=== PATIENT | female | born 1985 | race Caucasian/White ===

== ENCOUNTER 2018-05-13 15:16 | Emergency (ER) | payer MEDICARE, OTHER ==
[~2018-05-13] VITALS: Ht 175.3 cm; Wt 60.3 kg
[~2018-05-13 15:16] MED LIST: ALPR.25 PO; AMOX1XR PO; AMOX500 PO; ANTOXYBENA OT; AVONEX; Ativan0.5 MG PO; BCP'S; COPAXONE40 MG/1 ML SQ; CYCL10 PO; ESOM20 PO; FAMO40 PO; FLUT.05NI; GUAPSEER PO; HYDACE5 PO; HYDMOR4 PO; INTE30I; METPRE16 PO; METPRE4DP PO; NAPR550 PO; NEURONTIN; Norco 5-325 Ta1 EACH PO; OXYACE5T PO; OXYC5 PO; OXYM.05NI; Percocet 5-3251 EACH PO; TRAM50; Ultram50 MG PO; [UNRECOGNIZED DRUG - OTHER] PO; [UNRECOGNIZED DRUG - OTHER] PO; [UNRECOGNIZED DRUG - REMARK]
[2018-05-13] MEDS ORDERED: OCREVUS300 MG/10 (16:40)
[2018-05-13] MEDS ORDERED: Zanaflex2 M1 PO (17:31)
[2018-05-13] MEDS ORDERED: Percocet 5-3251 EACH PO (17:32)
[2018-05-13] MEDS ORDERED: Prednisone20 MG PO (17:33)
== END 2018-05-13 18:48 | disposition home or self-care (01) ==
LOC: ER 15:16
DX: G35 Multiple sclerosis (principal); Z79.899 Other long term (current) drug therapy; F17.200 Nicotine dependence, unspecified, uncomplicated
CPT/HCPCS: 96372; 99283; J1170

== ENCOUNTER 2018-09-02 00:33 | Emergency (ER) | payer MEDICARE, OTHER ==
[~2018-09-02] VITALS: Ht 175.3 cm; Wt 59.0 kg
[~2018-09-02 00:33] MED LIST changes: +Prednisone20 MG PO; +Zanaflex2 M1 PO
[2018-09-02] MEDS ORDERED: Prednisone50 MG PO (00:54)
[2018-09-02] MEDS ORDERED: Roxicodone5 MG PO (00:54)
[2018-09-02] MEDS ORDERED: Zanaflex4 MG PO (00:55)
== END 2018-09-02 02:06 | disposition home or self-care (01) ==
LOC: ER 00:33
DX: M62.830 Muscle spasm of back (principal); G35 Multiple sclerosis; F17.200 Nicotine dependence, unspecified, uncomplicated; Z79.899 Other long term (current) drug therapy
CPT/HCPCS: 96374; 99283-25; J1100; J3010

== ENCOUNTER 2018-09-10 13:21 | Day surgery (SDC) | payer MEDICARE, OTHER ==
[~2018-09-10 13:21] MED LIST changes: +Prednisone50 MG PO; +Roxicodone5 MG PO; +Zanaflex4 MG PO
[2018-09-10] MEDS ORDERED: OCREVUS300 MG/10 IV (13:47)
== END 2018-09-10 15:05 | disposition home or self-care (01) ==
LOC: ATC 13:21
DX: G35 Multiple sclerosis (principal)
CPT/HCPCS: 96365; J2930

== ENCOUNTER 2018-12-14 22:32 | Emergency (ER) | payer MEDICARE, OTHER ==
[~2018-12-14] VITALS: Ht 175.3 cm; Wt 61.2 kg
[~2018-12-14 22:32] MED LIST changes: +OCREVUS300 MG/10 IV
[2018-12-15 02:26] LABS: BASOPHILS ABSOLUTE AUTO 0.04 K/mm3 (0.00-0.23); BASOPHILS PERCENT AUTO 1 % (0-2); EOSINOPHILS ABSOLUTE AUTO 0.03 K/mm3 (0.00-0.68); EOSINOPHILS PERCENT AUTO 1 % (0-6); Hematocrit 42.4 % (33.0-51.0); Hemoglobin 14.2 g/dL (11.5-16.0); IMMATURE GRAN ABSOLUTE AUTO 0.01 K/mm3 (0.00-0.10); IMMATURE GRAN PERCENT AUTO 0 % (0-1); LYMPHOCYTES PERCENT AUTO 21 % (21-46); MONOCYTES ABSOLUTE AUTO 0.42 K/mm3 (0.16-1.47); MONOCYTES PERCENT AUTO 7 % (4-13); Mean Corpuscular HGB 30.5 pg (26.0-34.0); Mean Corpuscular HGB Conc 33.5 g/dL (31.5-36.5); Mean Corpuscular Volume 91 fL (80-100); NEUTROPHILS ABSOLUTE AUTO 4.49 K/mm3 (1.96-9.15); NEUTROPHILS PERCENT AUTO 71 % (41-73); Platelet Count 216 K/mm3 (150-400); RDW Coefficient Variation 11.9 % (11.7-14.2); RDW Standard Deviation 39.6 fL (35.1-46.3); Red Blood Cell Count 4.66 M/mm3 (3.80-5.20); White Blood Cell Count 6.29 K/mm3 (4.00-11.30)
[2018-12-15 02:38] LABS: Anion Gap 5 mmol/L (6-16); Blood Urea Nitrogen 12 mg/dL (8-24); Bun/Creatinine Ratio 18.8 (12.0-20.0); CO2, Blood 31 mmol/L (21-32); Calcium, Blood 8.9 mg/dL (8.5-10.1); Chloride, Blood 106 mmol/L (98-108); Creatinine, Blood 0.64 mg/dL (0.40-1.00); Glomerular Filtration Rate >60 (60-); Glucose, Blood 94 mg/dL (70-99); Potassium, Blood 3.5 mmol/L (3.5-5.5); Sodium, Blood 142 mmol/L (136-145)
[2018-12-15] MEDS ORDERED: Prednisone20 MG PO (04:13)
[2018-12-15] MEDS ORDERED: Cyclobenzaprine5 MG PO (04:13)
== END 2018-12-15 06:51 | disposition home or self-care (01) ==
LOC: ER 22:32
PROVIDERS: Emergency Medicine
DX: M62.830 Muscle spasm of back (principal); G35 Multiple sclerosis; F17.200 Nicotine dependence, unspecified, uncomplicated; Z79.82 Long term (current) use of aspirin
CPT/HCPCS: 20552; 36415; 80048; 83735; 85025; 96360-59; 99283-25; A9270-GY; J7120; J7512

== ENCOUNTER 2019-03-19 20:56 | Emergency (ER) | payer MEDICARE, OTHER ==
[~2019-03-19] VITALS: Ht 175.3 cm; Wt 60.3 kg
[~2019-03-19 20:56] MED LIST changes: +Cyclobenzaprine5 MG PO
[2019-03-19] MEDS ORDERED: PREG150 PO (21:13)
[2019-03-19 21:23] LABS: BASOPHILS ABSOLUTE AUTO 0.04 K/mm3 (0.00-0.23); BASOPHILS PERCENT AUTO 1 % (0-2); EOSINOPHILS ABSOLUTE AUTO 0.08 K/mm3 (0.00-0.68); EOSINOPHILS PERCENT AUTO 1 % (0-6); Hematocrit 38.8 % (33.0-51.0); Hemoglobin 13.6 g/dL (11.5-16.0); IMMATURE GRAN ABSOLUTE AUTO 0.01 K/mm3 (0.00-0.10); IMMATURE GRAN PERCENT AUTO 0 % (0-1); LYMPHOCYTES ABSOLUTE AUTO 2.11 K/mm3 (0.84-5.20); LYMPHOCYTES PERCENT AUTO 37 % (21-46); MONOCYTES ABSOLUTE AUTO 0.67 K/mm3 (0.16-1.47); MONOCYTES PERCENT AUTO 12 % (4-13); Mean Corpuscular HGB 30.8 pg (26.0-34.0); Mean Corpuscular HGB Conc 35.1 g/dL (31.5-36.5); Mean Corpuscular Volume 88 fL (80-100); Mean Platelet Volume 10.9 fL (9.1-12.4); NEUTROPHILS ABSOLUTE AUTO 2.84 K/mm3 (1.96-9.15); NEUTROPHILS PERCENT AUTO 49 % (41-73); Platelet Count 210 K/mm3 (150-400); RDW Coefficient Variation 11.4 % (11.7-14.2); RDW Standard Deviation 36.9 fL (35.1-46.3); Red Blood Cell Count 4.41 M/mm3 (3.80-5.20); White Blood Cell Count 5.75 K/mm3 (4.00-11.30)
[2019-03-19 21:37] LABS: Alanine Aminotransfer (ALT/SGP 22 U/L (12-78); Albumin, Blood 3.6 g/dL (3.4-5.0); Albumin/Globulin Ratio 1.2 (0.8-1.8); Alk Phos 58 U/L (50-136); Anion Gap 6 mmol/L (6-16); Aspartate Aminotrans (AST/SGOT 15 U/L (12-37); Bilirubin, Total 0.3 mg/dL (0.1-1.0); Blood Urea Nitrogen 6 mg/dL (8-24); Bun/Creatinine Ratio 10.3 (12.0-20.0); CO2, Blood 27 mmol/L (21-32); Calcium, Blood 8.2 mg/dL (8.5-10.1); Chloride, Blood 110 mmol/L (98-108); Creatinine, Blood 0.58 mg/dL (0.40-1.00); Globulin, Blood 2.9 g/dL (2.2-4.0); Glomerular Filtration Rate >60 (60-); Glucose, Blood 90 mg/dL (70-99); Potassium, Blood 3.2 mmol/L (3.5-5.5); Sodium, Blood 143 mmol/L (136-145); Total Protein, Blood 6.5 g/dL (6.4-8.2); Troponin I <0.015 ng/mL (0.000-0.040)
[2019-03-19] MEDS ORDERED: Ativan0.5 MG PO (22:41)
== END 2019-03-19 23:10 | disposition home or self-care (01) ==
LOC: ER 20:56
PROVIDERS: Emergency Medicine
DX: R00.2 Palpitations (principal); Z79.899 Other long term (current) drug therapy; F17.200 Nicotine dependence, unspecified, uncomplicated
CPT/HCPCS: 80053; 84484; 85025; 93005; 93010; 96374; 99285-25; J2060

== ENCOUNTER → 2019-07-09 | Outpatient (CLI) | payer MEDICARE, OTHER ==
[~2019-07-09] MED LIST changes: +DOCU100 PO; +IBUP800 PO; +OXYC1TAB11 PO; +PREG100 PO; +PREG150 PO
[2019-07-10 11:34] LABS: T. vaginalis (DNA Probe) Negative (NEGATIVE)
[2019-07-10 11:35] LABS: Candida species (DNA Probe) Negative (NEGATIVE); G. vaginalis (DNA Probe) Positive (NEGATIVE)
[2019-07-11 03:07] LABS: CHLAMYDIA TRACHOMATIS, NAA Negative (Negative); NEISSERIA GONORRHOEAE, NAA Negative (Negative)
== END | disposition home or self-care (01) ==
LOC: LAB 12:27 → LAB SHORT 12:27
PROVIDERS: Advanced Practice Midwife
DX: Z11.3 Encounter for screening for infections with a predominantly sexual mode of transmission (principal); N76.0 Acute vaginitis
CPT/HCPCS: 87480; 87491; 87510; 87591; 87660

== ENCOUNTER 2019-07-12 21:48 | Emergency (ER) | payer MEDICARE, OTHER ==
[~2019-07-12] VITALS: Ht 175.3 cm; Wt 61.2 kg
[~2019-07-12 21:48] MED LIST changes: -DOCU100 PO; -IBUP800 PO; -OXYC1TAB11 PO; -PREG100 PO
[2019-07-12] MEDS ORDERED: Zanaflex4 MG PO (21:54)
[2019-07-12] MEDS ORDERED: PREG100 PO (21:54)
[2019-07-12] MEDS ORDERED: OXYC1TAB11 PO (21:55)
== END 2019-07-13 00:55 | disposition home or self-care (01) ==
LOC: ER 21:48
DX: S00.03XA Contusion of scalp, initial encounter (principal); G35 Multiple sclerosis; M41.9 Scoliosis, unspecified; Z79.899 Other long term (current) drug therapy; F17.210 Nicotine dependence, cigarettes, uncomplicated; W05.0XXA Fall from non-moving wheelchair, initial encounter
CPT/HCPCS: 70450; 72125; 99284-25

== ENCOUNTER 2019-08-12 10:00 | Day surgery (SDC) | payer MEDICARE, OTHER ==
[~2019-08-12] VITALS: Ht 175.3 cm; Wt 61.4 kg
[~2019-08-12 10:00] MED LIST changes: +OXYC1TAB11 PO; +PREG100 PO
--- NOTE | 2019-08-12 10:46 | NUR ---
History, Chart, Medications and Allergies reviewed before start of procedure. Lungs clear T/O to Auscultation. Patient confirms NPO status and agrees with scheduled surgery. Pre-Op teaching done. Pt verbalizes understanding.
--- NOTE | 2019-08-12 15:02 | NUR ---
ARRIVED TO ROOM VIA EDWARDRJOSE A, AWAKE, A&O X3, DENIES ANY NAUSEA, REPORTS HAVING SOME "CRAMPING" PAIN ON LOWER ABD, NO DRAINAGE NOTED ON PERIPAD, QUIJANO CATH DRAINING C/Y/U, LAP INCISION W/ STERISTRIPS X3 C/D/I, DENIES ANY NEED FOR PAIN MEDS AT THIS TIME, CONT. TO MONITOR FOR ANY CHANGES.
--- NOTE | 2019-08-12 17:40 | NUR ---
SUMMARY REPORTS HAVING ADEQUATE PAIN CONTROL WITH PO PAIN MEDS, PT EATING REGUALR DINNER, TOLERATING WELL, ABD LAP. INCISIONS C/D/I, VSS, NO ACUTE CHANGES THIS SHIFT.
--- NOTE | 2019-08-12 19:05 | NUR ---
RECVD BEDSIDE REPORT FROM PREVIOUS SHIFT RN LISA, PT AWAKE, A/O, FAMILY IN ROOM, BED IN LOWEST POSITION, BED RAILS UP X 2, CALL LIGHT WITHIN REACH
[2019-08-13 04:09] LABS: BASOPHILS ABSOLUTE AUTO 0.01 K/mm3 (0.00-0.23); BASOPHILS PERCENT AUTO 0 % (0-2); EOSINOPHILS PERCENT AUTO 0 % (0-6); Hematocrit 31.1 % (33.0-51.0); Hemoglobin 10.6 g/dL (11.5-16.0); IMMATURE GRAN ABSOLUTE AUTO 0.04 K/mm3 (0.00-0.10); IMMATURE GRAN PERCENT AUTO 0 % (0-1); LYMPHOCYTES ABSOLUTE AUTO 0.71 K/mm3 (0.84-5.20); LYMPHOCYTES PERCENT AUTO 7 % (21-46); MONOCYTES ABSOLUTE AUTO 0.81 K/mm3 (0.16-1.47); MONOCYTES PERCENT AUTO 7 % (4-13); Mean Corpuscular HGB 29.9 pg (26.0-34.0); Mean Corpuscular HGB Conc 34.1 g/dL (31.5-36.5); Mean Corpuscular Volume 88 fL (80-100); NEUTROPHILS ABSOLUTE AUTO 9.33 K/mm3 (1.96-9.15); NEUTROPHILS PERCENT AUTO 86 % (41-73); Platelet Count 183 K/mm3 (150-400); RDW Coefficient Variation 12.3 % (11.7-14.2); RDW Standard Deviation 39.4 fL (35.1-46.3); Red Blood Cell Count 3.55 M/mm3 (3.80-5.20)
--- NOTE | 2019-08-13 05:46 | NUR ---
shift summary: vss, no acute changes. pt tolerated PO intake with no n/v. a/0 x 4, pleasant/cooperative. scant bleeding on peripad, changed x 1 during shift, steri strips c/d/i. pt's sons stayed overnight, assisted with repositioning and care. pt rates pain at 4-6/10, appears to be able to sleep. keyes catheter remained patent and draining clear yellow urine, will be dc'd at 0600 this AM. pt reports some relief of cramping pain in the pelvic region with k-pad and medication per oct.
[2019-08-13] MEDS ORDERED: DOCU100 PO (08:31)
[2019-08-13] MEDS ORDERED: IBUP800 PO (08:32)
[2019-08-13] MEDS ORDERED: OXYC5 PO (08:32)
--- NOTE | 2019-08-13 11:34 | NUR ---
PT REQUESTED TO HAVE DC INSTRUCTIONS, DC INSTRUCTIONS GIVEN, VERBALIZED UNDERSTANDING, RX'S GIVEN TO PT'S MOM,ANXIOUS TO GO HOME PT HAD [id number] AFTER FIRST VOID THIS AM, CONT. TO HAVE PT VOID AND CHECK PVR UNTIL <100 ORDERED, PT NOTIFIED, VERBALIZED UNDERSTANDING.
--- NOTE | 2019-08-13 12:30 | NUR ---
DC'D HOME W/ MOM AND SONS, IV DC'D, CATH INTACT.
== END 2019-08-13 12:26 | disposition home or self-care (01) ==
LOC: ORSCMMR 10:00 → ORD 11:30 → SURS 14:36 → ORSCMMR 08-13 12:26
PROVIDERS: Obstetrics & Gynecology
PROC: 0UT7FZZ Resection of Bilateral Fallopian Tubes, Via Natural or Artificial Opening With Percutaneous Endoscopic Assistance (ICD-10-PCS; principal; 2019-08-12 11:30)
PROC: 0UT9FZZ Resection of Uterus, Via Natural or Artificial Opening With Percutaneous Endoscopic Assistance (ICD-10-PCS; principal; 2019-08-12 11:30)
PROC: 0UT1FZZ Resection of Left Ovary, Via Natural or Artificial Opening With Percutaneous Endoscopic Assistance (ICD-10-PCS; principal; 2019-08-12 11:30)
DX: N92.0 Excessive and frequent menstruation with regular cycle (principal); N94.6 Dysmenorrhea, unspecified; N83.202 Unspecified ovarian cyst, left side; G35 Multiple sclerosis; F17.210 Nicotine dependence, cigarettes, uncomplicated; Z79.899 Other long term (current) drug therapy
CPT/HCPCS: 36415; 85025; 88307; J0690; J1100; J1650; J1885; J2250; J2370; J2405; J2704; J2710; J3010; J7120; Q0163

== ENCOUNTER 2019-09-10 00:13 | Day surgery (SDC) | payer MEDICARE, OTHER ==
[~2019-09-10 00:13] MED LIST changes: +DOCU100 PO; +IBUP800 PO
== END 2019-09-10 22:56 | disposition home or self-care (01) ==
LOC: ATC 00:13
DX: G35 Multiple sclerosis (principal); F41.9 Anxiety disorder, unspecified; F32.9 Major depressive disorder, single episode, unspecified; F17.200 Nicotine dependence, unspecified, uncomplicated; Z79.899 Other long term (current) drug therapy; Z79.891 Long term (current) use of opiate analgesic
CPT/HCPCS: J2930

== ENCOUNTER 2019-09-11 00:10 | Day surgery (SDC) | payer MEDICARE, OTHER | END 2019-09-11 23:07 | disposition home or self-care (01) | LOC: ATC 00:10 | DX: G35 Multiple sclerosis (principal); F41.9 Anxiety disorder, unspecified; E55.9 Vitamin D deficiency, unspecified; F33.9 Major depressive disorder, recurrent, unspecified; Z79.899 Other long term (current) drug therapy ==

== ENCOUNTER 2019-09-14 01:35 | Day surgery (SDC) | payer MEDICARE, OTHER | END 2019-09-14 22:38 | disposition home or self-care (01) | LOC: ATC 01:35 | DX: G35 Multiple sclerosis (principal); F41.9 Anxiety disorder, unspecified; F17.200 Nicotine dependence, unspecified, uncomplicated; E55.9 Vitamin D deficiency, unspecified; F33.9 Major depressive disorder, recurrent, unspecified; Z79.899 Other long term (current) drug therapy ==

== ENCOUNTER 2021-01-04 11:24 | Emergency (ER) | payer OTHER ==
[~2021-01-04] VITALS: Ht 175.3 cm; Wt 59.0 kg
[2021-01-04 11:50] LABS: BASOPHILS ABSOLUTE AUTO 0.05 K/mm3 (0.00-0.23); BASOPHILS PERCENT AUTO 0 % (0-2); EOSINOPHILS ABSOLUTE AUTO 0.04 K/mm3 (0.00-0.68); EOSINOPHILS PERCENT AUTO 0 % (0-6); Hematocrit 45.1 % (33.0-51.0); Hemoglobin 15.5 g/dL (11.5-16.0); IMMATURE GRAN ABSOLUTE AUTO 0.09 K/mm3 (0.00-0.10); IMMATURE GRAN PERCENT AUTO 0 % (0-1); LYMPHOCYTES ABSOLUTE AUTO 1.25 K/mm3 (0.84-5.20); LYMPHOCYTES PERCENT AUTO 6 % (21-46); MONOCYTES ABSOLUTE AUTO 1.44 K/mm3 (0.16-1.47); MONOCYTES PERCENT AUTO 7 % (4-13); Mean Corpuscular HGB 29.8 pg (26.0-34.0); Mean Corpuscular HGB Conc 34.4 g/dL (31.5-36.5); Mean Corpuscular Volume 87 fL (80-100); Mean Platelet Volume 10.9 fL (9.1-12.4); NEUTROPHILS ABSOLUTE AUTO 18.36 K/mm3 (1.96-9.15); NEUTROPHILS PERCENT AUTO 87 % (41-73); Platelet Count 284 K/mm3 (150-400); Red Blood Cell Count 5.21 M/mm3 (3.80-5.20); White Blood Cell Count 21.23 K/mm3 (4.00-11.30)
[2021-01-04 12:09] LABS: Alanine Aminotransfer (ALT/SGP 19 U/L (12-78); Albumin, Blood 3.6 g/dL (3.4-5.0); Alk Phos 99 U/L (50-136); Anion Gap 4 mmol/L (6-16); Aspartate Aminotrans (AST/SGOT 19 U/L (12-37); Bilirubin, Total 0.4 mg/dL (0.1-1.0); Blood Urea Nitrogen 13 mg/dL (8-24); Bun/Creatinine Ratio 22.3 (12.0-20.0); CO2, Blood 31 mmol/L (21-32); Calcium, Blood 9.1 mg/dL (8.5-10.1); Chloride, Blood 104 mmol/L (98-108); Creatinine, Blood 0.58 mg/dL (0.40-1.00); Globulin, Blood 3.5 g/dL (2.2-4.0); Glomerular Filtration Rate >60 (60-); Glucose, Blood 88 mg/dL (70-99); Potassium, Blood 2.8 mmol/L (3.5-5.5); Sodium, Blood 139 mmol/L (136-145); Total Protein, Blood 7.1 g/dL (6.4-8.2)
[2021-01-04 16:16] LABS: Source, Urine Catheter
[2021-01-04 16:20] LABS: Appearance, Urine Clear (Clear); Bilirubin, Urine Neg (Neg); Blood, Urine 2+ (Neg); Color, Urine Yellow (P-Yellow); Glucose Qualitative, Urine Neg (Neg); Ketones, Urine 2+ (Neg); Leukocyte Esterase, Urine Neg (Neg); Nitrite, Urine Neg (Neg); Protein, Urine Neg (Neg); Specific Gravity, Urine 1.015 (1.003-1.022); Urobilinogen, Urine NORM (Normal); pH, Urine 6.5 (5.0-8.0)
[2021-01-04 16:39] LABS: Bacteria Mod /hpf; Red Blood Cells, Urine Rare /hpf (0-2); Squamous Epithelial Cells Mod /hpf (Few); White Blood Cells, Urine 0-2 /hpf (0-5)
== END 2021-01-04 17:06 | disposition home or self-care (01) ==
LOC: ER 11:24
PROVIDERS: Physician Assistant
DX: K13.70 Unspecified lesions of oral mucosa (principal); R13.10 Dysphagia, unspecified; Z79.899 Other long term (current) drug therapy; Z87.891 Personal history of nicotine dependence
CPT/HCPCS: 70491; 80053; 81001; 83690; 85025; 87086; 96374-59; 96375-59; 99284-25; J2270; J2405; Q9967

== ENCOUNTER → 2021-01-07 | Outpatient (CLI) | payer OTHER ==
[2021-01-07 14:00] LABS: Performing Lab SYMBIODX; Test Name FLOW CYTOMETRY
== END | disposition home or self-care (01) ==
LOC: LAB SHORT 11:52 → LAB 11:52
PROVIDERS: Pathology Clinical Pathology/Laboratory Medicine
DX: D37.09 Neoplasm of uncertain behavior of other specified sites of the oral cavity (principal)
CPT/HCPCS: 88184; 88185; 88305; 88312

== ENCOUNTER → 2021-04-01 | Outpatient (CLI) | payer OTHER ==
[2021-04-02 10:05] LABS: Candida species (DNA Probe) Negative (NEGATIVE); G. vaginalis (DNA Probe) Positive (NEGATIVE); T. vaginalis (DNA Probe) Positive (NEGATIVE)
[2021-04-04 05:08] LABS: CHLAMYDIA TRACHOMATIS, NAA Negative (Negative)
== END | disposition home or self-care (01) ==
LOC: LAB 17:14 → LAB SHORT 17:14
PROVIDERS: Family Medicine
DX: N89.8 Other specified noninflammatory disorders of vagina (principal)
CPT/HCPCS: 87480; 87491; 87510; 87591; 87660

== ENCOUNTER 2021-09-24 15:34 | Emergency (ER) | payer OTHER ==
[~2021-09-24] VITALS: Ht 175.3 cm; Wt 681.3 kg
[2021-09-24] MEDS ORDERED: Prednisone10 MG PO (16:38)
[2021-09-24] MEDS ORDERED: ESTRADIOL1 M1 PO (16:38)
[2021-09-24 16:43] LABS: BASOPHILS ABSOLUTE AUTO 0.05 K/mm3 (0.00-0.23); BASOPHILS PERCENT AUTO 1 % (0-2); EOSINOPHILS ABSOLUTE AUTO 0.07 K/mm3 (0.00-0.68); EOSINOPHILS PERCENT AUTO 1 % (0-6); Hematocrit 43.5 % (33.0-51.0); Hemoglobin 14.8 g/dL (11.5-16.0); IMMATURE GRAN ABSOLUTE AUTO 0.03 K/mm3 (0.00-0.10); IMMATURE GRAN PERCENT AUTO 0 % (0-1); LYMPHOCYTES ABSOLUTE AUTO 0.18 K/mm3 (0.84-5.20); LYMPHOCYTES PERCENT AUTO 3 % (21-46); MONOCYTES ABSOLUTE AUTO 0.42 K/mm3 (0.16-1.47); MONOCYTES PERCENT AUTO 6 % (4-13); Mean Corpuscular HGB 30.6 pg (26.0-34.0); Mean Corpuscular Volume 90 fL (80-100); Mean Platelet Volume 9.9 fL (9.1-12.4); NEUTROPHILS ABSOLUTE AUTO 5.94 K/mm3 (1.96-9.15); NEUTROPHILS PERCENT AUTO 89 % (41-73); Platelet Count 155 K/mm3 (150-400); RDW Coefficient Variation 11.9 % (11.7-14.2); RDW Standard Deviation 39.2 fL (35.1-46.3); Red Blood Cell Count 4.83 M/mm3 (3.80-5.20); White Blood Cell Count 6.69 K/mm3 (4.00-11.30)
[2021-09-24 17:00] LABS: Alanine Aminotransfer (ALT/SGP 89 U/L (12-78); Albumin, Blood 3.4 g/dL (3.4-5.0); Albumin/Globulin Ratio 1.1 (0.8-1.8); Alk Phos 93 U/L (50-136); Anion Gap 6 mmol/L (6-16); Aspartate Aminotrans (AST/SGOT 57 U/L (12-37); Bilirubin, Total 0.5 mg/dL (0.1-1.0); Blood Urea Nitrogen 9 mg/dL (8-24); Bun/Creatinine Ratio 15.4 (12.0-20.0); CO2, Blood 27 mmol/L (21-32); Calcium, Blood 8.1 mg/dL (8.5-10.1); Chloride, Blood 102 mmol/L (98-108); Creatinine, Blood 0.58 mg/dL (0.40-1.00); Glomerular Filtration Rate >60 (60-); Glucose, Blood 98 mg/dL (70-99); Magnesium, Blood 1.7 mg/dL (1.6-2.4); Phosphorus, Blood 1.7 mg/dL (2.5-4.9); Potassium, Blood 3.5 mmol/L (3.5-5.5); Sodium, Blood 135 mmol/L (136-145); Total Protein, Blood 6.4 g/dL (6.4-8.2)
[2021-09-24] MEDS ORDERED: CALCIUM CARBON500 M1 PO (17:48)
[2021-09-24] MEDS ORDERED: PHOSPHOROUS 25250 MG PO (17:48)
== END 2021-09-24 18:20 | disposition home or self-care (01) ==
LOC: ER 15:34
PROVIDERS: Physician Assistant
DX: E83.39 Other disorders of phosphorus metabolism (principal); E83.51 Hypocalcemia; Z87.891 Personal history of nicotine dependence
CPT/HCPCS: 36415; 80053; 83735; 84100; 85025; 96374; 96375; 99285-25; A9270; J0780; J1200; J1885; J7030

== ENCOUNTER → 2024-12-18 | Outpatient (CLI) | payer OTHER ==
[~2024-12-18] MED LIST changes: +CALCIUM CARBON500 M1 PO; +ESTRADIOL1 M1 PO; +PHOSPHOROUS 25250 MG PO; +Prednisone10 MG PO
[2024-12-19 11:39] LABS: Candida Group, PCR NOT DETECTED (NOT DETECT); Candida glabrata-krusei, PCR NOT DETECTED (NOT DETECT)
[2024-12-19 12:34] LABS: Bacterial Vaginosis PCR Positive (NEGATIVE)
== END ==
LOC: LAB SHORT 14:56 → LAB 14:56
PROVIDERS: Advanced Practice Midwife
DX: N76.0 Acute vaginitis (principal)
CPT/HCPCS: 81515